=== PATIENT | female | born 1995 | race Caucasian/White ===

== ENCOUNTER → 2016-09-27 | Outpatient (REF) | payer OTHER | LOC: M LAB REF 16:56 | PROVIDERS: ATTEND Advanced Practice Midwife | DX: Z34.83 Encounter for supervision of other normal pregnancy, third trimester (principal) ==

== ENCOUNTER → 2016-10-04 | Outpatient (CLI) | payer OTHER ==
[2016-10-04 11:54] LABS: BASO % 0.4 % (0.0-1.0); EOS # 0.3 K/mm3 (0.0-0.50); EOS % 3.1 % (0.0-3.0); LARGE UNSTAINED CELL # 0.2 K/mm3 (0.0-0.4); LARGE UNSTAINED CELL % 1.6 % (0.0-4.0); LYMPH # 1.6 K/mm3 (1.5-6.5); LYMPH % 16.9 % (24.0-44.0); MEAN CORPUSCULAR HEMOGLOBIN 25.1 pg (27.0-33.0); MEAN CORPUSCULAR HGB CONC 32.1 g/dl (32.0-36.5); MEAN CORPUSCULAR VOLUME 78.2 fl (80.0-96.0); MONO # 0.5 K/mm3 (0.0-0.8); MONO % 4.9 % (0.0-5.0); NEUTROPHILS # 6.7 K/mm3 (1.8-7.7); PLATELET COUNT, AUTOMATED 236 k/mm3 (150-450); WHITE BLOOD COUNT 9.2 K/mm3 (4.0-10.0)
== END ==
LOC: M LAB 10:27
PROVIDERS: ATTEND Advanced Practice Midwife
DX: Z34.83 Encounter for supervision of other normal pregnancy, third trimester (principal)

== ENCOUNTER 2016-10-30 19:08 | Outpatient (CLI) | payer OTHER ==
[~2016-10-30] VITALS: Ht 160 cm; Wt 105.0 kg
[2016-10-30 19:28] VITALS: BP 119/66
[2016-10-30] MEDS ORDERED: PRENTAB9 PO (20:36)
== END 2016-10-30 23:04 | disposition home or self-care (01) ==
LOC: M LDO 19:08
PROVIDERS: ATTEND Advanced Practice Midwife
DX: O62.0 Primary inadequate contractions (principal); Z3A.40 40 weeks gestation of pregnancy

== ENCOUNTER 2016-11-03 05:25 | Inpatient (IN) | payer OTHER ==
[2016-11-03] VITALS (34 sets, daily range): BP systolic 84–156; BP diastolic 49–90
[~2016-11-03] VITALS: Ht 157.5 cm; Wt 110.0 kg
[~2016-11-03 05:25] MED LIST: PRENTAB9 PO
[2016-11-03] MEDS ORDERED: FERR325T3 PO (06:00)
[2016-11-03 06:04] LABS: MEAN CORPUSCULAR HEMOGLOBIN 25.5 pg (27.0-33.0); MEAN CORPUSCULAR HGB CONC 32.6 g/dl (32.0-36.5); MEAN CORPUSCULAR VOLUME 78.3 fl (80.0-96.0); RED CELL DISTRIBUTION WIDTH 14.6 % (11.5-14.5); WHITE BLOOD COUNT 9.1 K/mm3 (4.0-10.0)
[2016-11-03] MEDS: miSOPROStol 50 MCG 1/2 TAB (S0191) PO SCH ×3 (07:03→15:37)
--- NOTE | 2016-11-03 07:17 | HPE ---
DATE OF ADMISSION: 11/03/2016 Zoë is a 21-year-old 1, para 1-0-0-1 with an EDC of 10/26/2016, based on first trimester ultrasound. She presents to labor and delivery today for induction of labor due to post-term per consult with Dr. Vidal Cortes. She denies regular contractions, vaginal bleeding or leakage of fluid. Her fetus has been active. care was initiated at [facility] in the first trimester. course complicated by asthma with rare inhaler use. Rubella nonimmune, positive chlamydia and a treatment of cure followup was negative. OBSTETRICAL HISTORY: Primigravida. OB LABS: A positive, antibody screen negative, rubella nonimmune, VDRL nonreactive. Urine culture no growth. Hepatitis B surface antigen negative, HIV negative. Hepatitis C antibody nonreactive. Gonorrhea negative, positive chlamydia with treatment of cure on April 19 as negative. She did not have genetic serum screening markers performed. Gestational diabetic screening was 117 and GBS is negative. PAST MEDICAL HISTORY: Asthma, childhood varicella. FAMILY HISTORY: Diabetes, hypertension, heart disease, kidney disease, thyroid dysfunction. SURGERIES: None. SOCIAL HISTORY: The patient is single. Father does not appear to be present at bedside for support at this time, uncertain if he is involved in the patient's life. She is a nonsmoker. Denies alcohol and drug use. Positive history of chlamydia. Denies history of abuse. ALLERGIES: No known drug allergies. CURRENT MEDICATIONS: Include iron and vitamins. OBJECTIVE: Temperature 98.8, pulse 100, respirations 18, blood pressure 119/66. Alert and oriented times three. heart rate is 135 with moderate variability, positive excels, no decelerations. She has an occasional contraction. Abdomen is gravid, cephalic presentation. Estimated weight 8 pounds. Sterile vaginal exam: Fingertip thick and posterior, soft. ASSESSMENT: 1. Intrauterine at 41 weeks. 2. heart rate category one. 3. Post-term . PLAN: Admit the patient to labor and delivery. Saline lock. Labs as ordered. Out of bed ad helena. Regular diet. At this time, we will start misoprostol 50 mcg by mouth every four hours for cervical ripening. I do anticipate cervical ripening. I did review risks to induction including increased risk for section, intolerance to labor, failed induction. The patient understood and she had all of her questions answered and does desire to proceed with induction of labor.
[2016-11-03] MEDS ORDERED: FENTANYL 2MCG/ML ROPIVACAINE 0.2% NACL 250 ML CADD As Ordered ONE (19:18)
[2016-11-03] MEDS ORDERED: NALOXONE INJ 0.4 MG/1 ML VIAL (J2310) IV PRN (20:30)
[2016-11-03] MEDS ORDERED: ONDANSETRON 4MG/2ML VIAL (J2405) IV PRN (20:30)
[2016-11-03] MEDS ORDERED: FENTANYL/ROPIVACAINE/NACL CADD 250 ML EPIDURAL SCH (20:30)
[2016-11-03] MEDS ORDERED: EPIDURAL COMMENT XX SCH (20:30)
[2016-11-03] MEDS ORDERED: LACTATED RINGER'S 1000 ML IV PRN (20:30)
[2016-11-03] MEDS ORDERED: ePHEDrine SULFATE 25 MG/5 ML(5MG/ML) SYRINGE IV PRN (20:30)
[2016-11-03] MEDS ORDERED: diphenhydrAMINE INJ 50MG/ML VIAL (J1200) IV PRN (20:30)
[2016-11-03] MEDS ORDERED: REFRIGERATOR IV KEYS XX PRN (20:30)
[2016-11-03] MEDS ORDERED: EPIDURAL/PCA KEYS XX PRN (20:30)
[2016-11-03] MEDS ORDERED: OXYTOCIN 30 UNITS IN 0.9% NaCl 500ML IV BAG (J2590) As Ordered ONE (21:59)
[2016-11-03] MEDS ORDERED: OXYTOCIN DRIP 30 UNITS in APPROPRIATE DILUENT 1 EA IV SCH (22:00)
[2016-11-04] VITALS (23 sets, daily range): BP systolic 98–139; BP diastolic 46–71
[2016-11-04] MEDS: PRENATAL VITAMIN TAB PO SCH (09:00)
[2016-11-04] MEDS ORDERED: BICITRA 30ML SOLN UDC As Ordered ONE (11:06)
[2016-11-04] MEDS ORDERED: ceFAZolin 2 GM/D5W 50 ML IV BAG (J0690) As Ordered ONE (11:06)
[2016-11-04] MEDS ORDERED: OXYTOCIN INJ 10 UNITS/ML VIAL (J2590) As Ordered ONE (11:21)
[2016-11-04] MEDS ORDERED: LIDOCAINE PRES-FREE 2% 10ML AMP As Ordered ONE (11:21)
[2016-11-04] MEDS ORDERED: EPINEPHrine INJ 1 MG/ML 1ML VIAL/AMP As Ordered ONE (11:21)
[2016-11-04] MEDS ORDERED: ONDANSETRON 4MG/2ML VIAL (J2405) As Ordered ONE (11:41)
[2016-11-04] MEDS ORDERED: dexameTHASONE 4 MG/ML 1ML VIAL (J1100) As Ordered ONE (11:49)
[2016-11-04] MEDS ORDERED: MORPHINE PRES-FREE INJ 10 MG/10 ML VIAL (J2274) As Ordered ONE (11:56)
[2016-11-04] MEDS ORDERED: NALBUPHINE HCL 10 MG/ML AMP (J2300) IV PRN ×2 (12:05→13:00)
[2016-11-04] MEDS ORDERED: NALOXONE INJ 0.4 MG/1 ML VIAL (J2310) IV PRN ×2 (12:05)
[2016-11-04] MEDS ORDERED: METOCLOPRAMIDE INJ 10MG/2ML VIAL (J2765) IV PRN (12:05)
[2016-11-04] MEDS ORDERED: ONDANSETRON 4MG/2ML VIAL (J2405) IV PRN ×3 (12:05→13:00)
[2016-11-04] MEDS ORDERED: PERCOCET 5MG/325MG TAB PO PRN (12:30)
[2016-11-04] MEDS ORDERED: OXYTOCIN DRIP 30 UNITS in APPROPRIATE DILUENT 1 EA IV ONE (12:30)
[2016-11-04] MEDS ORDERED: RHOGAM 300 MCG (1500 IU) INJ (J2790) IM SCH (12:30)
[2016-11-04] MEDS ORDERED: MEASLES,MUMPS,RUBELLA VACCINE INJ (MMR-II) (90707) SC SCH (12:30)
[2016-11-04] MEDS ORDERED: DOCUSATE SODIUM 100 MG CAP PO PRN (12:30)
[2016-11-04] MEDS ORDERED: MEPERIDINE INJ 25 MG/ML VIAL (J2175) IV PRN (13:00)
[2016-11-04] MEDS ORDERED: KETOROLAC 30 MG/ML VIAL (J1885) IV PRN (13:00)
[2016-11-04] MEDS ORDERED: KETOROLAC 30 MG/ML VIAL (J1885) IV SCH (13:00)
[2016-11-04] MEDS ORDERED: fentaNYL 100 MCG/2 ML INJECTION (J3010) IV PRN (13:00)
[2016-11-04] MEDS ORDERED: LR 1,000 ML IV SCH ×2 (13:00→18:03)
[2016-11-04] MEDS: LR 1,000 ML IV SCH ×2 (16:50→20:25)
[2016-11-04] MEDS: KETOROLAC 30 MG/ML VIAL (J1885) IV SCH (18:40)
[2016-11-05] MEDS: KETOROLAC 30 MG/ML VIAL (J1885) IV SCH ×3 (01:13→13:21)
[2016-11-05 01:42] VITALS: BP 143/70
[2016-11-05 05:37] VITALS: BP 139/72
[2016-11-05 06:34] LABS: MEAN CORPUSCULAR HGB CONC 32.1 g/dl (32.0-36.5); MEAN CORPUSCULAR VOLUME 77.9 fl (80.0-96.0); RED CELL DISTRIBUTION WIDTH 14.6 % (11.5-14.5); WHITE BLOOD COUNT 15.3 K/mm3 (4.0-10.0)
--- NOTE | 2016-11-05 07:21 | RO ---
DATE OF PROCEDURE: 11/04/2016 PREOPERATIVE DIAGNOSIS: 41-1/7 weeks gestation. Arrested descent. POSTOPERATIVE DIAGNOSIS: 41-1/7 weeks gestation. Arrested descent. OPERATIVE PROCEDURE: Primary low transverse section. CLOTH TESTER QUALITY: Vidal Cortes MD [employer] TECHNICAL OFFICER: Shelly Barton ANESTHESIA: Epidural. ESTIMATED BLOOD LOSS: 500 mL. URINE OUTPUT: 100 mL. IV FLUIDS: 1500 mL Lactated Ringer's. FINDINGS: 7 pound 3 ounce or 3272 gram male infant, 8 and 9 in the left occiput posterior position. Light meconium stained fluid. Normal uterus, fallopian tubes and ovaries. OPERATIVE SUMMARY: The patient was taken to the operating room where epidural anesthesia was found to be adequate. She was prepped and draped in a sterile fashion in the supine position. A Hodges catheter was already in place. A Pfannenstiel skin incision was made with a scalpel and carried through to the fascia. The fascia was nicked and extended. The fascia was dissected off the rectus muscles. The rectus muscles were divided and the peritoneal cavity was entered. A bladder flap was created. A curvilinear incision was made in the lower uterine segment until light meconium stained fluid was noted. This was extended manually. The was delivered from the vertex position without difficult. The infant cried spontaneously and was handed to the nurses. The placenta was expressed. The uterus was exteriorized and cleared of clots and debris. The uterine incision was closed with #0 Vicryl in a running locked fashion. A second imbricating layer of #0 Vicryl was placed. The uterus was placed back in the abdomen. The peritoneum was closed with #2-0 Vicryl in a running fashion. The fascia was closed with #0 Vicryl in a running fashion. The deep layer was irrigated and closed with #2-0 Chromic. The skin was closed with #4-0 Monocryl subcuticular sutures. Sponge, instrument and needle counts were correct.
[2016-11-05] MEDS: PRENATAL VITAMIN TAB PO SCH (08:17)
[2016-11-05] MEDS ORDERED: OXYC1TAB23 PO (09:33)
[2016-11-05 10:00] VITALS: BP 135/66
[2016-11-05] MEDS: PERCOCET 5MG/325MG TAB PO PRN ×2 (11:48→22:23)
[2016-11-05 14:35] VITALS: BP 128/57
[2016-11-05 18:00] VITALS: BP 138/80
[2016-11-05] MEDS: IBUPROFEN 800 MG TAB PO SCH (20:04)
[2016-11-05 22:00] VITALS: BP 147/72
[2016-11-06] MEDS: IBUPROFEN 800 MG TAB PO SCH ×2 (05:28→13:34)
[2016-11-06 06:00] VITALS: BP 178/86
[2016-11-06] MEDS: PERCOCET 5MG/325MG TAB PO PRN (06:28)
--- NOTE | 2016-11-06 06:37 | DSES ---
DATE OF ADMISSION: 11/03/2016 DATE OF DISCHARGE: HISTORY: 21-year-old G1, 41 and 1/7 weeks gestation who was admitted for induction of labor. course unremarkable. HOSPITAL COURSE: On 11/03/2016, the patient was admitted for labor induction. Induction had slow progress. She was eventually diagnosed with arrest of descent after pushing for an hour and a half with no change in station. On 11/04/2016, she underwent primary section for a 7 pound 3 ounce male infant in the occiput and posterior position. Procedure was uncomplicated. Her postoperative course was unremarkable. Her hemoglobin was 7.8 gm/dl. She had active return of bladder and bowel function. She was deemed stable for discharge on postoperative day 2. ADMISSION DIAGNOSIS: 41 weeks. DISCHARGE DIAGNOSIS: Delivered. PROCEDURE: Primary low transverse section. DISPOSITION: Patient will followup with Dr. Cortes in 2 weeks for an incision check. Instructions were reviewed.
[2016-11-06 06:42] VITALS: BP 134/65
[2016-11-06] MEDS ORDERED: MOTR200T44 PO (07:56)
[2016-11-06] MEDS: PRENATAL VITAMIN TAB PO SCH (08:34)
== END 2016-11-06 15:30 | disposition home or self-care (01) | DRG 540 ==
LOC: M LDI 05:25 → M OBS 11-04 14:12
PROVIDERS: ADMIT Advanced Practice Midwife; ATTEND Specialist
PROC: 3E0P7GC Introduction of Other Therapeutic Substance into Female Reproductive, Via Natural or Artificial Opening (ICD-10-PCS; 2016-11-03)
PROC: 10D00Z1 Extraction of Products of Conception, Low, Open Approach (ICD-10-PCS; principal; 2016-11-04 11:42)
DX: O48.0 Post-term pregnancy (principal); J45.909 Unspecified asthma, uncomplicated; O99.52 Diseases of the respiratory system complicating childbirth; Z3A.41 41 weeks gestation of pregnancy; O32.4XX0 Maternal care for high head at term, not applicable or unspecified; O66.8 Other specified obstructed labor; Z37.0 Single live birth

== ENCOUNTER 2017-01-14 20:49 | Emergency (ER) | payer OTHER ==
[~2017-01-14] VITALS: Ht 157.5 cm; Wt 107.5 kg
[~2017-01-14 20:49] MED LIST changes: +FERR325T3 PO; +MOTR200T44 PO; +OXYC1TAB23 PO
[2017-01-14 20:52] VITALS: BP 146/67
[2017-01-14] MEDS ORDERED: NAPR500T PO (21:19)
[2017-01-14] MEDS ORDERED: NAPROXEN 250 MG TAB PO ONE (21:30)
== END 2017-01-14 21:29 | disposition home or self-care (01) ==
LOC: M ED 21:08
DX: S43.422A Sprain of left rotator cuff capsule, initial encounter (principal); X50.0XXA Overexertion from strenuous movement or load, initial encounter; Y92.89 Other specified places as the place of occurrence of the external cause; Y93.89 Activity, other specified; Y99.9 Unspecified external cause status

== ENCOUNTER 2017-02-17 23:49 | Emergency (ER) | payer OTHER ==
[~2017-02-17] VITALS: Ht 162.6 cm; Wt 107.5 kg
[~2017-02-17 23:49] MED LIST changes: +NAPR500T PO
[2017-02-17 23:50] VITALS: BP 132/68
[2017-02-18 02:23] LABS: BASO # 0.1 K/mm3 (0.0-0.2); BASO % 0.6 % (0.0-1.0); EOS # 0.5 K/mm3 (0.0-0.50); EOS % 5.8 % (0.0-3.0); LARGE UNSTAINED CELL # 0.1 K/mm3 (0.0-0.4); LARGE UNSTAINED CELL % 1.4 % (0.0-4.0); LYMPH # 2.6 K/mm3 (1.5-6.5); LYMPH % 26.9 % (24.0-44.0); MEAN CORPUSCULAR HEMOGLOBIN 23.1 pg (27.0-33.0); MEAN CORPUSCULAR HGB CONC 31.4 g/dl (32.0-36.5); MEAN CORPUSCULAR VOLUME 73.6 fl (80.0-96.0); MONO # 0.5 K/mm3 (0.0-0.8); NEUTROPHILS # 5.5 K/mm3 (1.8-7.7); NEUTROPHILS % 60.3 % (36.0-66.0); PLATELET COUNT, AUTOMATED 305 k/mm3 (150-450); RED CELL DISTRIBUTION WIDTH 15.7 % (11.5-14.5); WHITE BLOOD COUNT 9.1 K/mm3 (4.0-10.0)
[2017-02-18 02:45] LABS: ALBUMIN 3.4 GM/DL (3.2-5.2); ALBUMIN/GLOBULIN RATIO 0.97 (1.00-1.93); ALKALINE PHOSPHATASE 96 U/L (45-117); ALT/SGPT 30 U/L (12-78); AMYLASE 57 U/L (25-115); ANION GAP 10 MEQ/L (8-16); AST/SGOT 21 U/L (15-37); BILIRUBIN,DIRECT < 0.1 MG/DL (0.0-0.2); BILIRUBIN,TOTAL 0.1 MG/DL (0.2-1.0); BLOOD UREA NITROGEN 18 MG/DL (7-18); CALCIUM LEVEL 8.3 MG/DL (8.5-10.1); CARBON DIOXIDE LEVEL 27 MEQ/L (21-32); CHLORIDE LEVEL 106 MEQ/L (98-107); CREATININE FOR GFR 0.86 MG/DL (0.55-1.02); GLUCOSE, FASTING 84 MG/DL (70-105); SODIUM LEVEL 143 MEQ/L (136-145); TOTAL PROTEIN 6.9 GM/DL (6.4-8.2)
== END 2017-02-18 05:50 | disposition left against medical advice (07) ==
LOC: M ED 02-18 01:19
DX: R10.9 Unspecified abdominal pain (principal); Z79.1 Long term (current) use of non-steroidal anti-inflammatories (NSAID); Z79.899 Other long term (current) drug therapy

== ENCOUNTER 2017-07-05 11:22 | Emergency (ER) | payer OTHER ==
[~2017-07-05] VITALS: Ht 157.5 cm; Wt 106.4 kg
[2017-07-05 11:23] VITALS: BP 142/66
[2017-07-05] MEDS ORDERED: PRED20TA PO (12:04)
[2017-07-05] MEDS ORDERED: GUAISYP4 PO (12:04)
== END 2017-07-05 12:17 | disposition home or self-care (01) ==
LOC: M ED 11:22
DX: J20.9 Acute bronchitis, unspecified (principal); F17.210 Nicotine dependence, cigarettes, uncomplicated

== ENCOUNTER 2018-11-25 09:38 | Emergency (ER) | payer OTHER ==
[~2018-11-25] VITALS: Ht 157.5 cm; Wt 124.6 kg
[2018-11-25 09:38] VITALS: BP 130/81
[~2018-11-25 09:38] MED LIST changes: +GUAISYP4 PO; +NAPR-50 PO; -NAPR500T PO; +PRED20TA PO
[2018-11-25] MEDS ORDERED: AUGM875T28 PO (10:50)
[2018-11-25] MEDS ORDERED: IBUP80TA PO (10:50)
[2018-11-25] MEDS ORDERED: FLON1SPR NARES (10:50)
== END 2018-11-25 11:00 | disposition home or self-care (01) ==
LOC: M ED 09:38
DX: H66.41 Suppurative otitis media, unspecified, right ear (principal); Z72.0 Tobacco use

== ENCOUNTER 2019-02-05 17:58 | Emergency (ER) | payer OTHER ==
[~2019-02-05] VITALS: Ht 157.5 cm; Wt 117.3 kg
[~2019-02-05 17:58] MED LIST changes: +AUGM875T28 PO; +FLON1SPR NARES; +IBUP80TA PO; -NAPR-50 PO; +NAPR-837 PO
[2019-02-05] MEDS ORDERED: CYCL5TAB PO (19:50)
[2019-02-05] MEDS ORDERED: KETO10TAB PO (19:50)
[2019-02-05 20:17] VITALS: BP 121/67
== END 2019-02-05 20:19 | disposition home or self-care (01) ==
LOC: M ED 17:58
DX: M54.6 Pain in thoracic spine (principal); Z72.0 Tobacco use

== ENCOUNTER 2019-09-25 17:23 | Emergency (ER) | payer OTHER ==
[~2019-09-25] VITALS: Ht 157.5 cm; Wt 125.0 kg
[2019-09-25 17:23] VITALS: BP 137/71
[~2019-09-25 17:23] MED LIST changes: +CYCL5TAB PO; +KETO10TAB PO
[2019-09-25] MEDS ORDERED: PANT40TA3 PO (18:52)
[2019-09-25] MEDS ORDERED: SUCR1SS PO (18:52)
[2019-09-25 19:12] LABS: BASO % 0.4 % (0.0-1.0); EOS # 0.2 10^3/uL (0.0-0.5); EOS % 2.1 % (0.0-3.0); HEMATOCRIT 38.7 % (36.0-47.0); HEMOGLOBIN 11.9 g/dl (12.0-15.5); LYMPH # 2.6 10^3/uL (1.5-5.0); LYMPH % 28.5 % (24.0-44.0); MEAN CORPUSCULAR HEMOGLOBIN 24.1 pg (27.0-33.0); MEAN CORPUSCULAR HGB CONC 30.7 g/dl (32.0-36.5); MEAN CORPUSCULAR VOLUME 78.5 fl (80.0-96.0); MONO # 0.7 10^3/uL (0.0-0.8); MONO % 7.4 % (0.0-5.0); NEUTROPHILS # 5.5 10^3/uL (1.5-8.5); NEUTROPHILS % 61.3 % (36.0-66.0); PLATELET COUNT, AUTOMATED 309 10^3/uL (150-450); RED BLOOD COUNT 4.93 10^6/uL (4.00-5.40)
== END 2019-09-25 19:18 | disposition home or self-care (01) ==
LOC: M ED 17:23
DX: K21.0 Gastro-esophageal reflux disease with esophagitis (principal); Z87.891 Personal history of nicotine dependence

== ENCOUNTER → 2021-02-15 | Outpatient (REF) | payer OTHER ==
[~2021-02-15] MED LIST changes: +PANT40TA29 PO; +SUCR1SS PO
[2021-02-15 17:46] LABS: HEMATOCRIT 40.2 % (36.0-47.0); HEMOGLOBIN 12.6 g/dl (12.0-15.5); MEAN CORPUSCULAR HEMOGLOBIN 25.3 pg (27.0-33.0); MEAN CORPUSCULAR HGB CONC 31.3 g/dl (32.0-36.5); MEAN CORPUSCULAR VOLUME 80.7 fl (80.0-96.0); PLATELET COUNT, AUTOMATED 293 10^3/uL (150-450); RED BLOOD COUNT 4.98 10^6/uL (4.00-5.40); WHITE BLOOD COUNT 7.7 10^3/uL (4.0-10.0)
[2021-02-15 18:18] LABS: FREE T4 0.92 NG/DL (0.76-1.46); HCG, SERUM QUANTITATIVE < 1.0 MIU/ML
[2021-02-15 18:40] LABS: HEMOGLOBIN A1c 5.2 %
== END ==
LOC: M PLALAB 13:49
PROVIDERS: ATTEND Advanced Practice Midwife
DX: N92.6 Irregular menstruation, unspecified (principal)

== ENCOUNTER → 2021-02-17 | Outpatient (REF) | payer OTHER | LOC: M PLALAB 12:52 | PROVIDERS: ATTEND Advanced Practice Midwife | DX: N92.6 Irregular menstruation, unspecified (principal) ==

== ENCOUNTER 2022-02-09 18:26 | Emergency (ER) | payer OTHER ==
[~2022-02-09] VITALS: Ht 157.5 cm; Wt 143.9 kg
[2022-02-09 18:28] VITALS: BP 146/71
== END 2022-02-09 22:25 | disposition left against medical advice (07) ==
LOC: M ED 18:26
DX: Z53.29 Procedure and treatment not carried out because of patient's decision for other reasons (principal)

== ENCOUNTER 2023-11-08 09:24 | Day surgery (SDC) | payer OTHER ==
[~2023-11-08] VITALS: Ht 157.5 cm; Wt 134.7 kg
[2023-11-08] MEDS: ceFAZolin SOD 2 GM in IV 1 EA IV ONE (06:00)
[2023-11-08] MEDS: HEPARIN SOD (PORCINE) 5000UNITS/ML 1ML VIAL/SYRINGE SQ ONE (06:00)
[~2023-11-08 09:24] MED LIST changes: +IRON27TA2 PO
[2023-11-08] MEDS ORDERED: propofoL 200 MG/20 ML VIAL As Ordered ONE (09:52)
[2023-11-08] MEDS ORDERED: ROCURONIUM BROMIDE 50MG/5ML VIAL As Ordered ONE (09:52)
[2023-11-08] MEDS ORDERED: LIDOCAINE 2% 100MG/5ML SDV (FOR ANES.) As Ordered ONE (09:52)
[2023-11-08] MEDS ORDERED: MIDAZOLAM INJ 2MG/2ML VIAL As Ordered ONE (09:52)
[2023-11-08] MEDS ORDERED: fentaNYL 100 MCG/2 ML INJECTION As Ordered ONE (09:52)
[2023-11-08] MEDS ORDERED: ONDANSETRON 4MG 2ML VIAL As Ordered ONE (09:52)
[2023-11-08] MEDS ORDERED: ACETAMINOPHEN 1000MG 100ML IV BAG As Ordered ONE (09:54)
[2023-11-08] MEDS ORDERED: dexmedeTOMIDine (4MCG/ML)200MCG/50ML BTL (PRECEDEX) As Ordered ONE (09:59)
[2023-11-08] MEDS: INDOCYANINE GREEN 25MG VIAL (IC-GREEN) IV ONE (10:58)
[2023-11-08] MEDS: ceFAZolin 1GM VIAL As Ordered ONE (11:20)
[2023-11-08] MEDS ORDERED: SUGAMMADEX SODIUM 500 MG/5 ML VIAL (BRIDION) As Ordered ONE (11:27)
[2023-11-08] MEDS ORDERED: KETOROLAC 60MG 2ML VIAL As Ordered ONE (11:27)
[2023-11-08] MEDS ORDERED: LR 1,000 ML IV SCH ×2 (12:00→12:10)
[2023-11-08] MEDS ORDERED: ONDANSETRON 4MG 2ML VIAL IV PRN (12:10)
[2023-11-08] MEDS ORDERED: fentaNYL 100 MCG/2 ML INJECTION IV PRN (12:10)
[2023-11-08] MEDS ORDERED: HYDROMORPHONE HCL 0.5 MG/ 0.5 ML SYRINGE IV PRN (12:10)
[2023-11-08] MEDS: oxyCODONE 5MG TAB PO PRN (12:49)
[2023-11-08 13:46] VITALS: BP 131/82; TEMP 97.8; O2SAT 98
== END 2023-11-08 13:56 | disposition home or self-care (01) ==
LOC: M SDC 09:24
PROVIDERS: ATTEND Surgery
DX: K80.10 Calculus of gallbladder with chronic cholecystitis without obstruction (principal); E66.01 Morbid (severe) obesity due to excess calories; Z68.43 Body mass index [BMI] 50.0-59.9, adult; Z87.891 Personal history of nicotine dependence
CPT/HCPCS: 47563; 81025; 88304; J0131; J0665; J0690; J1100; J1885; J2250; J2405; J3010; Q9968; S2900

== ENCOUNTER 2024-01-15 08:53 | Emergency (ER) | payer OTHER, SELFPAY ==
[~2024-01-15] VITALS: Ht 160 cm; Wt 131.4 kg
[2024-01-15] MEDS ORDERED: PANT40TA29 (09:05)
[2024-01-15] MEDS: KETOROLAC 30 MG/ML 1ML VIAL IV ONE (12:48)
[2024-01-15 13:07] LABS: BASO # 0.1 10^3/uL (0.0-0.2); BASO % 0.6 % (0.0-1.0); EOS # 0.2 10^3/uL (0.0-0.5); EOS % 1.9 % (0.0-3.0); HEMATOCRIT 38.6 % (36.0-47.0); HEMOGLOBIN 12.1 g/dl (12.0-15.5); LYMPH # 2.1 10^3/uL (1.5-5.0); LYMPH % 24.5 % (24.0-44.0); MEAN CORPUSCULAR HEMOGLOBIN 25.5 pg (27.0-33.0); MEAN CORPUSCULAR HGB CONC 31.3 g/dl (32.0-36.5); MEAN CORPUSCULAR VOLUME 81.4 fl (80.0-96.0); MONO # 0.5 10^3/uL (0.0-0.8); NEUTROPHILS # 5.7 10^3/uL (1.5-8.5); NEUTROPHILS % 66.8 % (36.0-66.0); PLATELET COUNT, AUTOMATED 285 10^3/uL (150-450); RED BLOOD COUNT 4.74 10^6/uL (4.00-5.40); WHITE BLOOD COUNT 8.6 10^3/uL (4.0-10.0)
[2024-01-15 13:22] LABS: LIPASE 21 U/L (12-53)
[2024-01-15 13:25] LABS: ALBUMIN 3.1 G/DL (3.2-5.2); ALKALINE PHOSPHATASE 80 U/L (46-116); ALT/SGPT 30 U/L (7.0-40); AST/SGOT 26 U/L (<34); BILIRUBIN,DIRECT 0.1 MG/DL (<0.4); BILIRUBIN,TOTAL 0.3 MG/DL (0.3-1.2); BLOOD UREA NITROGEN 14 MG/DL (9-23); CALCIUM LEVEL 8.4 MG/DL (8.5-10.1); CARBON DIOXIDE LEVEL 28 MMOL/L (20-31); CHLORIDE LEVEL 107 MMOL/L (98-107); CREATININE FOR GFR 0.82 MG/DL (0.55-1.30); GLOMERULAR FILTRATION RATE > 60.0 (>60); GLUCOSE, FASTING 89 MG/DL (60-100); POTASSIUM SERUM 4.4 MMOL/L (3.5-5.1); SODIUM LEVEL 140 MMOL/L (136-145); TOTAL PROTEIN 6.1 G/DL (5.7-8.2)
[2024-01-15] MEDS: NS 1,000 ML IV ONE (13:41)
[2024-01-15] MEDS ORDERED: ISOVUE-370 76% 100ML VIAL As Ordered ONE (13:51)
[2024-01-15] MEDS ORDERED: NAPR-837 PO (14:41)
[2024-01-15 14:59] VITALS: BP 113/56; TEMP 97.4; O2SAT 99
== END 2024-01-15 15:06 | disposition home or self-care (01) ==
LOC: M ED 08:53 → EDBD 08:53 → M ED 15:06
DX: R10.9 Unspecified abdominal pain (principal); K21.9 Gastro-esophageal reflux disease without esophagitis; F17.290 Nicotine dependence, other tobacco product, uncomplicated; Z79.899 Other long term (current) drug therapy
CPT/HCPCS: 74018; 74177; 76705; 80048; 80076; 83690; 85025; 96374; 99284; J1885; Q9967

== ENCOUNTER → 2024-11-13 | Outpatient (CLI) | payer MEDICAID, OTHER ==
[~2024-11-13] MED LIST changes: -CYCL5TAB PO; +CYCL5TAB4 PO; +PANT40TA29
[2024-11-13 10:26] LABS: THYROID STIMULATING HORMONE 2.591 uIU/ML (0.55-4.78)
[2024-11-13 10:27] LABS: FREE T4 0.98 NG/DL (0.89-1.76)
== END ==
LOC: M LAB 09:20
PROVIDERS: ATTEND Nurse Practitioner Family
DX: R10.13 Epigastric pain (principal)

== ENCOUNTER → 2025-04-22 | Outpatient (CLI) | payer OTHER ==
[~2025-04-22] MED LIST changes: +FAMO40TA3 PO; +FERR324T2 PO; +LORA-930 PO; -PANT40TA29; +RETI0.0215
[2025-04-22 13:39] LABS: FREE T4 1.02 NG/DL (0.89-1.76)
== END ==
LOC: M LAB 11:30
PROVIDERS: ATTEND Nurse Practitioner Family
DX: R10.13 Epigastric pain (principal); E03.8 Other specified hypothyroidism

== ENCOUNTER → 2025-04-23 | Outpatient (REF) | payer OTHER | LOC: M LAB REF 10:14 | PROVIDERS: ATTEND Nurse Practitioner Family | DX: R10.13 Epigastric pain (principal) ==